=== PATIENT | female | born 1945 | race Caucasian/White ===

== ENCOUNTER 2019-03-25 08:35 | Emergency (ER) | payer OTHER ==
[~2019-03-25] VITALS: Ht 170.2 cm; Wt 65.9 kg
[2019-03-25 08:45] VITALS: TEMP 98.4
[2019-03-25] MEDS ORDERED: FLEXERIL 1010 MG/TAB PO (10:52)
[2019-03-25] MEDS ORDERED: MEDROL 4MG DOSPA4 MG PO ×2 (10:52→11:32)
[2019-03-25 11:00] VITALS: BP 143/73; PULSE 75
== END 2019-03-25 11:36 | disposition home or self-care (01) ==
LOC: COL.ER 08:35
DX: S32.040A Wedge compression fracture of fourth lumbar vertebra, initial encounter for closed fracture (principal); W19.XXXA Unspecified fall, initial encounter; Y93.H2 Activity, gardening and landscaping